=== PATIENT | female | born 1975 | race Two or more races ===

== ENCOUNTER 2017-11-23 08:42 | Emergency (ER) | payer MEDICAID ==
[~2017-11-23] VITALS: Ht 170.2 cm; Wt 74.8 kg
--- NOTE | 2017-11-23 08:45 | NUR ---
[id number], came to ER c/o RLQ abdominal pain since 3am radiates to right lower back. +dysuria, denies hematuria. Skin is warm and dry. Placed on hospital gown. Dr Painter at BS for eval.
[2017-11-23] MEDS ORDERED: IV NS 0.9% 1,000 ML BAG IV ONE (09:00)
[2017-11-23] MEDS ORDERED: MORPHINE SULFATE INJ 2 MG/ML DISP.SYRIN IV ONE ×2 (09:00→12:00)
[2017-11-23] MEDS ORDERED: MORPHINE SULFATE INJ 4 MG/ML DISP.SYRIN ONE ×2 (09:02→12:00)
[2017-11-23 09:19] LABS: BASOPHILS # (AUTO) 0.4 /CMM (0.0-0.2); BASOPHILS % (AUTO) 3.5 % (0.0-2.0); EOSINOPHILS % (AUTO) 0.5 % (0.0-6.0); HEMATOCRIT 41 % (33-45); HEMOGLOBIN 13.8 g/dL (11.5-14.8); LYMPHOCYTES # (AUTO) 2.5 /CMM (0.8-4.8); LYMPHOCYTES % (AUTO) 23.5 % (20.0-44.0); MEAN CORPUSCULAR HGB CONC 34 g/dl (31.0-36.0); MEAN CORPUSCULAR VOLUME 90 fL (82-100); MONOCYTES # (AUTO) 0.6 /CMM (0.1-1.30); MONOCYTES % (AUTO) 5.4 % (2.0-12.0); NEUTROPHILS % (AUTO) 67.1 % (43.0-81.0); PLATELET COUNT (AUTO) 457 /CMM (150-450); RDW COEFFICIENT OF VARIATION 12.9 (11.5-15.0); RED BLOOD CELL COUNT(AUTO) 4.55 MIL/uL (4.0-5.2); WHITE BLOOD COUNT (AUTO) 10.6 K/uL (4.3-11.0)
--- NOTE | 2017-11-23 09:22 | NUR ---
IV ACCESS STARTED. BLOOD DRAWN FOR LABS. MEDICATED ORDERED. WAITING TO GIVE URINE SAMPLE.
[2017-11-23 09:27] LABS: CALCIUM, SERUM 9.5 mg/dL (8.5-10.1); CREATININE 1.1 mg/dL (0.6-1.3); POTASSIUM 4.6 mmol/L (3.5-5.1)
[2017-11-23 09:29] LABS: C-REACTIVE PROTEIN 0.5 mg/dL (0.0-0.9)
[2017-11-23] MEDS ORDERED: ONDANSETRON HCL/PF 4 MG/2 ML VIAL ONE (09:51)
[2017-11-23] MEDS ORDERED: ONDANSETRON HCL/PF - ER 4 MG/2 ML VIAL IV ONE (10:00)
[2017-11-23 10:02] LABS: INR 0.96 (0.87-1.13)
--- NOTE | 2017-11-23 10:40 | NUR ---
US AT BS.
[2017-11-23 11:04] LABS: APPEARANCE,URINE Slightly Cloudy (CLEAR); BILIRUBIN,URINE Negative (NEGATIVE); BLOOD, URINE Small Ery/uL (NEGATIVE); COLOR,URINE Yellow (YELLOW); KETONES,URINE 15 (NEGATIVE); LEUKOCYTE ESTERASE ,URINE Negative (NEGATIVE); NITRITE, URINE Negative (NEGATIVE); PROTEIN,URINE Trace mg/dl (NEGATIVE); UGLUCOSE Negative (NEGATIVE); UROBILINOGEN,URINE 0.2 EU/dL (0.2)
[2017-11-23 11:09] LABS: PH,URINE >9.0 (5.0-8.0)
[2017-11-23 11:19] LABS: BACTERIA,URINE Few /HPF (None Seen); SQUAMOUS EPITHELIAL CELL,UR Many /HPF (None Seen); WBC,URINE 0-2 /HPF (0-3)
[2017-11-23] MEDS ORDERED: IV D5/0.45 NACL 1,000 ML IV ONE (11:30)
[2017-11-23] MEDS ORDERED: ACETAMINOPHEN ES 500 MG TABLET ONE (11:54)
[2017-11-23] MEDS ORDERED: ACETAMINOPHEN 325 MG TABLET PO ONE (12:00)
--- NOTE | 2017-11-23 12:00 | NUR ---
IV removed. Catheter intact and site benign. Pressure and 4x4 applied to site. No bleeding noted.
--- NOTE | 2017-11-23 12:24 | NUR ---
Patient discharged to home in stable condition. Written and verbal after care instructions given. Patient verbalizes understanding of instruction.
[2017-11-23 12:25] VITALS: BP 148/71
== END 2017-11-23 12:26 | disposition home or self-care (01) ==
LOC: ER 08:44
DX: N23 Unspecified renal colic (principal); M54.9 Dorsalgia, unspecified; R30.0 Dysuria
CPT/HCPCS: 36415; 76770; 76805; 80048; 81001; 84702; 84703; 85025; 85730; 86140; 87086; 96374; 96375; 96376; 99285; A4606; J2270 ×2; J2405; J7030; Z7610; 81000-TC